=== PATIENT | male | born 1970 | race Caucasian/White ===

== ENCOUNTER 2020-05-08 12:35 | Inpatient (IN) | payer OTHER ==
--- NOTE | 2020-05-08 12:57 | BHS.RME ---
Substance Use & Tx History - Substance Use History Alcohol Substance amount: 2 six packs and 1/2 pint vodka Frequency of use: Daily Substance route: Oral Date of Last Use: 05/07/20 (started age 17) Cocaine- Powder Substance amount: $20 Frequency of use: Daily Substance route: Inhalation (ex: sniffing or snorting) Date of Last Use: 05/07/20 (started age 19) Marijuana/Hashish Substance amount: $5-10 Frequency of use: Daily Substance route: Smoking Date of Last Use: 05/07/20 (started age 17) Nicotine Substance amount: 1 pack Frequency of use: Daily Substance route: Smoking Date of Last Use: 05/08/20 (started age 17) CIWA Nausea/Vomitin-Mild Nausea/No Vomiting Muscle Tremors: 3 Agitation: 3 Paroxysmal Sweats: 3 Orientation: 1-Uncertain about Date Tacttile Disturbances: 0-None Auditory Disturbances: 0-None Visual Disturbances: 0-None Headache: 0-None Present
--- NOTE | 2020-05-08 14:57 | HP ---
CIWA Score Nausea/Vomitin-Mild Nausea/No Vomiting (CIWA 13*) Muscle Tremors: 3 Agitation: 3 Paroxysmal Sweats: 3 Orientation: 1-Uncertain about Date Tacttile Disturbances: 0-None Auditory Disturbances: 0-None Visual Disturbances: 0-None Headache: 0-None Present - Admission Criteria OASAS Guidelines: Admission for Medically Managed Detox: Requires at least one of the followin. CIWA greater than 12 2. Seizures within the past 24 hours 3. Delirium tremens within the past 24 hours 4. Hallucinations within the past 24 hours 5. Acute intervention needed for co occurring medical disorder 6. Acute intervention needed for co occurring psychiatric disorder 7. Severe withdrawal that cannot be handled at a lower level of care (continued vomiting, continued diarrhea, abnormal vital signs) requiring intravenous medication and/or fluids 8. Admitting History and Physical - Admission Chief Complaint: 50 yo M present for alcohol detox; "I want to stop drinking." History of Present Illness: 50 yo M present for alcohol detox; "I want to stop drinking." Last here 01/18/2020 - 01/23/2020 (completed detox). Last drink was yesterday. PMH - DM (insulin long acting at night 30 u, 1000 mg metformin) - reports not having used it in months PSH - none Psych - none, "slow learner" Soc/Domiciled - homeless - lives with friends + shelters Legal - none CIWA=13 Substance Use & Tx History - Substance Use History Alcohol Substance amount: 2 six packs and 1/2 pint vodka Frequency of use: Daily Substance route: Oral Date of Last Use: 05/07/20 (started age 17) Cocaine- Powder Substance amount: $20 Frequency of use: Daily Substance route: Inhalation (ex: sniffing or snorting) Date of Last Use: 05/07/20 (started age 19) Marijuana/Hashish Substance amount: $5-10 Frequency of use: Daily Substance route: Smoking Date of Last Use: 05/07/20 (started age 17) Nicotine Substance amount: 1 pack Frequency of use: Daily Substance route: Smoking Date of Last Use: 05/08/20 (started age 17) - Past Medical History Psych: Yes: Other (mental retardation) Endocrine: Yes: Diabetes Mellitus - Past Surgical History Past Surgical History: Yes: None - Smoking History Smoking history: Current every day smoker Have you smoked in the past 12 months: Yes Aproximately how many cigarettes per day: 20 - Alcohol/Substance Use Hx Alcohol Use: Yes Number of Drinks Daily: 10 History of Substance Use: reports: Cocaine, Marijuana - Social History ADL: Independent Occupation: unemployed History of Recent Travel: No Admission ROS [facility] - [facility] Allergies/Adverse Reactions: Allergies Allergy/AdvReac Type Severity Reaction Status Date / Time fish derived Allergy Intermediate Itching Verified 01/19/20 11:19 shellfish derived Allergy Intermediate Itching Verified 01/19/20 11:19 No Known Drug Allergies Allergy Verified 01/18/20 11:58 seafood Allergy Intermediate Itching Uncoded 01/18/20 10:48 NKDA Allergy Unknown Uncoded 01/18/20 11:58 Exam Limitations: No Limitations - Ebola screening Have you traveled outside of the country in the last 21 days: No Have you been sick,other than usual withdrawal symptoms: No Do you have a fever: No - Review of Systems Constitutional: Other (trouble sleeping) EENT: reports: Blurred Vision (nearsighted with glasses) Respiratory: reports: No Symptoms reported Cardiac: reports: No Symptoms Reported GI: reports: Constipated, Nausea : reports: No Symptoms Reported Musculoskeletal: reports: No Symptoms Reported Integumentary: reports: No Symptoms Reported Neuro: reports: No Symptoms reported Endocrine: reports: Increased Urine Hematology: reports: No Symptoms Reported Psychiatric: reports: Anxious Patient History - Patient Medical History Hx Anemia: No Hx Asthma: No Hx Chronic Obstructive Pulmonary Disease (COPD): No Hx Cancer: No Hx Cardiac Disorders: No Hx Congestive Heart Failure: No Hx Hypertension: No Hx Hypercholesterolemia: No Hx Pacemaker: No HX Cerebrovascular Accident: No Hx Seizures: No Hx Dementia: No Hx Diabetes: Yes Hx Gastrointestinal Disorders: No Hx Liver Disease: No Hx Genitourinary Disorders: No Hx Sexually Transmitted Disorders: No Hx Renal Disease (ESRD): No Hx Thyroid Disease: No Hx Human Immunodeficiency Virus (HIV): No Hx Hepatitis C: No Hx Depression: No Hx Suicide Attempt: No Hx Bipolar Disorder: No Hx Schizophrenia: No - Patient Surgical History Past Surgical History: No Hx Neurologic Surgery: No Hx Cataract Extraction: No Hx Cardiac Surgery: No Hx Lung Surgery: No Hx Breast Surgery: No Hx Breast Biopsy: No Hx Abdominal Surgery: No Hx Appendectomy: No Hx Cholecystectomy: No Hx Genitourinary Surgery: No Hx Section: No Hx Orthopedic Surgery: No Anesthesia Reaction: No - PPD History Date: 01/20/20 - Smoking Cessation Smoking history: Current every day smoker Have you smoked in the past 12 months: Yes Aproximately how many cigarettes per day: 20 Cigars Per Day: 0 Hx Chewing Tobacco Use: No Initiated information on smoking cessation: Yes 'Breaking Loose' booklet given: 05/08/20 Admission Physical Exam [facility] - Vital Signs Vital Signs: BP 132/74 HR 70 RR 16 T 97.7 O2 sat 100% - Physical General Appearance: Yes: Nourished, Appropriately Dressed HEENTM: Yes: EOMI, Hearing grossly Normal, Normocephalic, Normal Voice Respiratory: Yes: Lungs Clear, Normal Breath Sounds, No Respiratory Distress, No Accessory Muscle Use Neck: Yes: Supple, Trachea in good position Breast: Yes: Breast Exam Deferred Cardiology: Yes: Regular Rhythm, Regular Rate Genitourinary: Yes: Other (deferred) Back: Yes: Normal Inspection Musculoskeletal: Yes: Gait Steady Extremities: Yes: Normal Inspection, Non-Tender Neurological: Yes: Fully Oriented, Alert, Normal Mood/Affect Integumentary: Yes: Normal Color, Dry, Warm Cleared for Admission S - Detox or Rehab [facility] Level of Care: Medically Managed Breathalyzer - Breathalyzer Breathalyzer: 0 Urine Drug Screen - Test Device Lot number: [id number] Expiration date: 11/23/21 - Control Is test valid?: Yes - Results Drug screen NEGATIVE: Yes Urine drug screen results: THC-Marijuana, TIM-Cocaine Inpatient Rehab Admission - Rehab Decision to Admit Inpatient rehab admission?: No
[2020-05-08] MEDS ORDERED: MAGNESIUM CITRATE 300 ML BOTTLE PO PRN (15:13)
[2020-05-08] MEDS ORDERED: MENTHOL/PHENOL 1 EACH UD MM PRN (15:13)
[2020-05-08] MEDS ORDERED: chlordiazePOXIDE HCL 25 MG CAPSULE PO PRN (15:13)
[2020-05-08] MEDS ORDERED: IBUPROFEN 400 MG TABLET (FP) PO PRN (15:13)
[2020-05-08] MEDS ORDERED: ONDANSETRON *ODT* 4 MG TABLET SL PRN (15:13)
[2020-05-08] MEDS ORDERED: BISMUTH SUBSALICYLATE 262 MG/15 ML BTL PO PRN (15:13)
[2020-05-08] MEDS ORDERED: MAG HYDROX/AL HYDROX/SIMETH 30 ML UNIT-DOSE CUP PO PRN (15:13)
[2020-05-08] MEDS ORDERED: METHOCARBAMOL 500 MG TABLET PO PRN (15:13)
[2020-05-08] MEDS ORDERED: ACETAMINOPHEN 325 MG TABLET (FP) PO PRN ×2 (15:13)
[2020-05-08] MEDS ORDERED: NICOTINE POLACRILEX 2 MG GUM BUC PRN (15:13)
[2020-05-08] MEDS ORDERED: MAGNESIUM HYDROX 2400MG/30ML ORAL SUSPENSION 30 ML CUP PO PRN (15:13)
[2020-05-08] MEDS ORDERED: Insulin (LOG) Aspart 100 UNITS/ML VIAL SQ ONE (15:37)
[2020-05-08] MEDS ORDERED: INSULIN (NOVOLOG) ASPART 100 UNITS/ML 10ML VIAL ONE (16:29)
[2020-05-08 16:42] VITALS: BMI 20.3
[2020-05-08] MEDS: hydrOXYzine PAMOATE 25 MG CAPSULE (FP) PO SCH ×2 (17:43→22:20)
[2020-05-08] MEDS: NICOTINE 21 MG/24 HOURS TOPICAL PATCH TD SCH (17:43)
[2020-05-08] MEDS: metFORMIN HCL 500 MG TABLET (FP) PO SCH (17:43)
[2020-05-08] MEDS: chlordiazePOXIDE HCL 25 MG CAPSULE PO SCH ×2 (17:44→22:20)
[2020-05-08] MEDS: INSULIN SLIDING SCALE (NOVOLOG) 1 VIAL SQ SCH ×2 (17:46→21:33)
[2020-05-08 20:18] LABS: HEMATOCRIT 44.6 % (35.4-49); HEMOGLOBIN 14.5 GM/dL (11.7-16.9); MCH 29.4 pg (25.7-33.7); MCHC 32.6 g/dl (32.0-35.9); MEAN CELL VOLUME 90.3 fl (80-96); MEAN PLT VOLUME 10.6 fl (7.5-11.1); PLATELET COUNT 175 K/MM3 (134-434); RBC 4.94 M/mm3 (4.00-5.60); RDW 13.4 % (11.9-15.9); WHITE BLOOD COUNT 4.5 K/mm3 (4.0-10.0)
[2020-05-08 20:24] LABS: BLOOD UREA NITROGEN 5.8 mg/dL (7-18); CREATININE 1.1 mg/dL (0.55-1.3)
[2020-05-08 20:25] LABS: ALBUMIN 3.6 g/dl (3.4-5.0); BILIRUBIN,TOTAL 1.2 mg/dL (0.2-1); CALCIUM 8.7 mg/dL (8.5-10.1); POTASSIUM 4.2 mmol/L (3.5-5.1); TOT PROT 6.9 g/dl (6.4-8.2)
[2020-05-08] MEDS: THIAMINE HCL 100 MG TABLET (FP) PO SCH (22:20)
[2020-05-08] MEDS: MELATONIN 5 MG TABLETS PO SCH (22:20)
[2020-05-09] MEDS: chlordiazePOXIDE HCL 25 MG CAPSULE PO SCH ×4 (06:09→22:26)
[2020-05-09] MEDS: hydrOXYzine PAMOATE 25 MG CAPSULE (FP) PO SCH ×5 (06:09→22:26)
[2020-05-09] MEDS: metFORMIN HCL 500 MG TABLET (FP) PO SCH ×2 (06:16→16:36)
[2020-05-09] MEDS: INSULIN SLIDING SCALE (NOVOLOG) 1 VIAL SQ SCH ×4 (06:16→22:25)
[2020-05-09] MEDS ORDERED: INSULIN SLIDING SCALE (NOVOLOG) 1 VIAL SQ ONE (06:21)
--- NOTE | 2020-05-09 08:27 | PN ---
Teaching Attending Note Name of Resident: Prabhu Jasmine ATTENDING PHYSICIAN STATEMENT I saw and evaluated the patient. I reviewed the resident's note and discussed the case with the resident. I agree with the resident's findings and plan as documented. SUBJECTIVE: OBJECTIVE: ASSESSMENT AND PLAN: 1. Alcohol withdrawal, uncomplicated Plan 1. Admit to detox, Librium
--- NOTE | 2020-05-09 09:36 | PN ---
[facility] CIWA - CIWA Score Nausea/Vomitin-Mild Nausea/No Vomiting Muscle Tremors: 2 Anxiety: 2 Agitation: 2 Paroxysmal Sweats: No Perspiration Orientation: 0-Oriented Tacttile Disturbances: 1-Very Mild Itch/Numbness Auditory Disturbances: 0-None Visual Disturbances: 0-None Headache: 2-Mild CIWA-Ar Total Score: 10 S Progress Note (SOAP) Subjective: alert,irritable,anxious,interrupted sleep aching pain,nausea Objective: 05/09/20 14:54 Vital Signs Temperature 97.3 F L 05/09/20 12:44 Pulse Rate 68 05/09/20 12:44 Respiratory Rate 18 05/09/20 12:44 Blood Pressure 110/65 05/09/20 12:44 O2 Sat by Pulse Oximetry (%) 97 05/09/20 12:44 05/09/20 14:54 Laboratory Last Values WBC 4.5 K/mm3 (4.0-10.0) 05/08/20 15:15 RBC 4.94 M/mm3 (4.00-5.60) 05/08/20 15:15 Hgb 14.5 GM/dL (11.7-16.9) 05/08/20 15:15 Hct 44.6 % (35.4-49) 05/08/20 15:15 MCV 90.3 fl (80-96) 05/08/20 15:15 MCH 29.4 pg (25.7-33.7) 05/08/20 15:15 MCHC 32.6 g/dl (32.0-35.9) 05/08/20 15:15 RDW 13.4 % (11.9-15.9) 05/08/20 15:15 Plt Count 175 K/MM3 (134-434) D 05/08/20 15:15 MPV 10.6 fl (7.5-11.1) D 05/08/20 15:15 Sodium 134 mmol/L (136-145) L 05/08/20 15:15 Potassium 4.2 mmol/L (3.5-5.1) 05/08/20 15:15 Chloride 99 mmol/L (98-107) 05/08/20 15:15 Carbon Dioxide 30 mmol/L (21-32) 05/08/20 15:15 Anion Gap 6 MMOL/L (8-16) L 05/08/20 15:15 BUN 5.8 mg/dL (7-18) L 05/08/20 15:15 Creatinine 1.1 mg/dL (0.55-1.3) 05/08/20 15:15 Est GFR (CKD-EPI)AfAm 89.61 05/08/20 15:15 Est GFR (CKD-EPI)NonAf 77.32 05/08/20 15:15 POC Glucometer 280 UNITS (80-120) 05/09/20 11:48 Random Glucose 553 mg/dL (74-106) H* 05/08/20 15:15 Calcium 8.7 mg/dL (8.5-10.1) 05/08/20 15:15 Total Bilirubin 1.2 mg/dL (0.2-1) H 05/08/20 15:15 AST 16 U/L (15-37) 05/08/20 15:15 ALT 32 U/L (13-61) 05/08/20 15:15 Alkaline Phosphatase 111 U/L (45-117) 05/08/20 15:15 Total Protein 6.9 g/dl (6.4-8.2) 05/08/20 15:15 Albumin 3.6 g/dl (3.4-5.0) 05/08/20 15:15 Syphilis Serology Non-reactive (NONREACTIVE) 05/08/20 15:13 Assessment: 05/09/20 14:55 withdrawal symptom Plan: continue detox librium regimen,bgm monitoring with insulin coverage,close monitoring
[2020-05-09] MEDS: PRENATAL VITAMINS W/ FOLIC ACID TABLET (FP) PO SCH (10:45)
[2020-05-09] MEDS: NICOTINE 21 MG/24 HOURS TOPICAL PATCH TD SCH (10:45)
[2020-05-09] MEDS: LISINOPRIL 5 MG TABLET (FP) PO SCH (10:45)
[2020-05-09] MEDS: MELATONIN 5 MG TABLETS PO SCH (22:25)
[2020-05-09] MEDS: THIAMINE HCL 100 MG TABLET (FP) PO SCH (22:26)
[2020-05-10] MEDS: chlordiazePOXIDE HCL 25 MG CAPSULE PO SCH ×4 (05:18→22:19)
[2020-05-10] MEDS: hydrOXYzine PAMOATE 25 MG CAPSULE (FP) PO SCH ×5 (05:18→22:19)
[2020-05-10] MEDS: metFORMIN HCL 500 MG TABLET (FP) PO SCH ×2 (06:18→18:15)
[2020-05-10] MEDS: INSULIN SLIDING SCALE (NOVOLOG) 1 VIAL SQ SCH ×4 (06:19→22:27)
--- NOTE | 2020-05-10 08:42 | PN ---
S CIWA - CIWA Score Nausea/Vomitin Muscle Tremors: 2 Anxiety: 2 Agitation: 2 Paroxysmal Sweats: No Perspiration Orientation: 0-Oriented Tacttile Disturbances: 1-Very Mild Itch/Numbness Auditory Disturbances: 0-None Visual Disturbances: 0-None Headache: 2-Mild CIWA-Ar Total Score: 11 S Progress Note (SOAP) Subjective: alert,irritable,anxious,interrupted sleep,tremor,aching pain Objective: 05/10/20 10:43 Vital Signs Temperature 97.1 F L 05/10/20 09:03 Pulse Rate 92 H 05/10/20 09:03 Respiratory Rate 18 05/10/20 09:03 Blood Pressure 129/74 05/10/20 09:03 O2 Sat by Pulse Oximetry (%) 99 05/10/20 06:18 05/10/20 10:43 Laboratory Last Values WBC 4.5 K/mm3 (4.0-10.0) 05/08/20 15:15 RBC 4.94 M/mm3 (4.00-5.60) 05/08/20 15:15 Hgb 14.5 GM/dL (11.7-16.9) 05/08/20 15:15 Hct 44.6 % (35.4-49) 05/08/20 15:15 MCV 90.3 fl (80-96) 05/08/20 15:15 MCH 29.4 pg (25.7-33.7) 05/08/20 15:15 MCHC 32.6 g/dl (32.0-35.9) 05/08/20 15:15 RDW 13.4 % (11.9-15.9) 05/08/20 15:15 Plt Count 175 K/MM3 (134-434) D 05/08/20 15:15 MPV 10.6 fl (7.5-11.1) D 05/08/20 15:15 Sodium 134 mmol/L (136-145) L 05/08/20 15:15 Potassium 4.2 mmol/L (3.5-5.1) 05/08/20 15:15 Chloride 99 mmol/L (98-107) 05/08/20 15:15 Carbon Dioxide 30 mmol/L (21-32) 05/08/20 15:15 Anion Gap 6 MMOL/L (8-16) L 05/08/20 15:15 BUN 5.8 mg/dL (7-18) L 05/08/20 15:15 Creatinine 1.1 mg/dL (0.55-1.3) 05/08/20 15:15 Est GFR (CKD-EPI)AfAm 89.61 05/08/20 15:15 Est GFR (CKD-EPI)NonAf 77.32 05/08/20 15:15 POC Glucometer 163 UNITS (80-120) 05/10/20 05:18 Random Glucose 553 mg/dL (74-106) H* 05/08/20 15:15 Calcium 8.7 mg/dL (8.5-10.1) 05/08/20 15:15 Total Bilirubin 1.2 mg/dL (0.2-1) H 05/08/20 15:15 AST 16 U/L (15-37) 05/08/20 15:15 ALT 32 U/L (13-61) 05/08/20 15:15 Alkaline Phosphatase 111 U/L (45-117) 05/08/20 15:15 Total Protein 6.9 g/dl (6.4-8.2) 05/08/20 15:15 Albumin 3.6 g/dl (3.4-5.0) 05/08/20 15:15 Syphilis Serology Non-reactive (NONREACTIVE) 05/08/20 15:13 COVID-19 (SHERI) Not detected (Not Detected) 05/08/20 16:30 Assessment: 05/10/20 10:43 withdrawal symptom Plan: continue detox librium regimen,bgm monitoring with insulin coverage sliding scale
[2020-05-10] MEDS: NICOTINE 21 MG/24 HOURS TOPICAL PATCH TD SCH (10:12)
[2020-05-10] MEDS: PRENATAL VITAMINS W/ FOLIC ACID TABLET (FP) PO SCH (10:12)
[2020-05-10] MEDS: LISINOPRIL 5 MG TABLET (FP) PO SCH (10:12)
[2020-05-10] MEDS: MELATONIN 5 MG TABLETS PO SCH (22:19)
[2020-05-10] MEDS: THIAMINE HCL 100 MG TABLET (FP) PO SCH (22:19)
[2020-05-11] MEDS ORDERED: chlordiazePOXIDE HCL 10 MG CAPSULE PO PRN
[2020-05-11] MEDS: chlordiazePOXIDE HCL 10 MG CAPSULE PO SCH ×4 (05:20→22:10)
[2020-05-11] MEDS: hydrOXYzine PAMOATE 25 MG CAPSULE (FP) PO SCH ×5 (05:21→22:10)
[2020-05-11] MEDS: metFORMIN HCL 500 MG TABLET (FP) PO SCH ×2 (07:06→17:25)
[2020-05-11] MEDS ORDERED: INSULIN SLIDING SCALE (NOVOLOG) 1 VIAL SQ ONE (07:06)
[2020-05-11] MEDS: INSULIN SLIDING SCALE (NOVOLOG) 1 VIAL SQ SCH ×4 (07:06→22:10)
--- NOTE | 2020-05-11 10:25 | PN ---
S CIWA - CIWA Score Nausea/Vomitin Muscle Tremors: 2 Anxiety: 2 Agitation: 2 Paroxysmal Sweats: No Perspiration Orientation: 0-Oriented Tacttile Disturbances: 1-Very Mild Itch/Numbness Auditory Disturbances: 0-None Visual Disturbances: 0-None Headache: 1-Very Mild CIWA-Ar Total Score: 10 S Progress Note (SOAP) Subjective: alert,irritable,anxious,interrupted sleep,tremor,aching pain Objective: 05/11/20 14:22 Vital Signs Temperature 97.5 F L 05/11/20 12:51 Pulse Rate 74 05/11/20 12:51 Respiratory Rate 18 05/11/20 12:51 Blood Pressure 119/68 05/11/20 12:51 O2 Sat by Pulse Oximetry (%) 99 05/11/20 12:51 Laboratory Last Values WBC 4.5 K/mm3 (4.0-10.0) 05/08/20 15:15 RBC 4.94 M/mm3 (4.00-5.60) 05/08/20 15:15 Hgb 14.5 GM/dL (11.7-16.9) 05/08/20 15:15 Hct 44.6 % (35.4-49) 05/08/20 15:15 MCV 90.3 fl (80-96) 05/08/20 15:15 MCH 29.4 pg (25.7-33.7) 05/08/20 15:15 MCHC 32.6 g/dl (32.0-35.9) 05/08/20 15:15 RDW 13.4 % (11.9-15.9) 05/08/20 15:15 Plt Count 175 K/MM3 (134-434) D 05/08/20 15:15 MPV 10.6 fl (7.5-11.1) D 05/08/20 15:15 Sodium 134 mmol/L (136-145) L 05/08/20 15:15 Potassium 4.2 mmol/L (3.5-5.1) 05/08/20 15:15 Chloride 99 mmol/L (98-107) 05/08/20 15:15 Carbon Dioxide 30 mmol/L (21-32) 05/08/20 15:15 Anion Gap 6 MMOL/L (8-16) L 05/08/20 15:15 BUN 5.8 mg/dL (7-18) L 05/08/20 15:15 Creatinine 1.1 mg/dL (0.55-1.3) 05/08/20 15:15 Est GFR (CKD-EPI)AfAm 89.61 05/08/20 15:15 Est GFR (CKD-EPI)NonAf 77.32 05/08/20 15:15 POC Glucometer 278 UNITS (80-120) 05/11/20 11:53 Random Glucose 553 mg/dL (74-106) H* 05/08/20 15:15 Calcium 8.7 mg/dL (8.5-10.1) 05/08/20 15:15 Total Bilirubin 1.2 mg/dL (0.2-1) H 05/08/20 15:15 AST 16 U/L (15-37) 05/08/20 15:15 ALT 32 U/L (13-61) 05/08/20 15:15 Alkaline Phosphatase 111 U/L (45-117) 05/08/20 15:15 Total Protein 6.9 g/dl (6.4-8.2) 05/08/20 15:15 Albumin 3.6 g/dl (3.4-5.0) 05/08/20 15:15 Syphilis Serology Non-reactive (NONREACTIVE) 05/08/20 15:13 COVID-19 (SHERI) Not detected (Not Detected) 05/08/20 16:30 Assessment: 05/11/20 14:23 withdrawal symptom Plan: continue detox librium regimen,bgm monitoring
[2020-05-11] MEDS: LISINOPRIL 5 MG TABLET (FP) PO SCH (10:47)
[2020-05-11] MEDS: NICOTINE 21 MG/24 HOURS TOPICAL PATCH TD SCH (10:48)
[2020-05-11] MEDS: PRENATAL VITAMINS W/ FOLIC ACID TABLET (FP) PO SCH (10:48)
[2020-05-11] MEDS: MELATONIN 5 MG TABLETS PO SCH (22:10)
[2020-05-11] MEDS: THIAMINE HCL 100 MG TABLET (FP) PO SCH (22:10)
[2020-05-12] MEDS ORDERED: chlordiazePOXIDE HCL 10 MG CAPSULE PO SCH (05:00)
[2020-05-12] MEDS: hydrOXYzine PAMOATE 25 MG CAPSULE (FP) PO SCH ×3 (05:37→14:33)
[2020-05-12] MEDS: metFORMIN HCL 500 MG TABLET (FP) PO SCH (07:32)
[2020-05-12] MEDS: INSULIN SLIDING SCALE (NOVOLOG) 1 VIAL SQ SCH ×2 (07:32→11:39)
--- NOTE | 2020-05-12 08:37 | PN ---
[facility] CIWA - CIWA Score Nausea/Vomitin-No Nausea/No Vomiting Muscle Tremors: None Anxiety: 1-Mildly Anxious Agitation: 0-Normal Activity Paroxysmal Sweats: No Perspiration Orientation: 0-Oriented Tacttile Disturbances: 0-None Auditory Disturbances: 0-None Visual Disturbances: 0-None Headache: 0-None Present CIWA-Ar Total Score: 1 S Progress Note (SOAP) Subjective: alert,no complaint Objective: 05/12/20 13:22 Vital Signs Temperature 97.7 F 05/12/20 12:40 Pulse Rate 70 05/12/20 12:40 Respiratory Rate 18 05/12/20 12:40 Blood Pressure 111/75 05/12/20 12:40 O2 Sat by Pulse Oximetry (%) 97 05/12/20 12:40 Assessment: 05/12/20 13:22 no withdrawal symptom Plan: stable for discharge today to [facility]
--- NOTE | 2020-05-12 10:02 | DS ---
[facility] Detox Discharge Summary Admission Date: 05/08/20 Discharge Date: 05/12/20 - History Present History: Alcohol Dependence, Cannabis Dependence, Cocaine Dependence Additional Comments: alert,oriented x3 ambulation on the unit lung clear on auscultation bilaterally abdomen soft,no distension,no pain no swelling of legs stable for discharge today no withdrawal symptom total time of discharge 35 minutes follow up with after care program [facility] as arrangement Pertinent Past History: type 2 dm nicotine dependence - Physical Exam Results Vital Signs: Vital Signs Temperature 97.5 F L 05/12/20 08:32 Pulse Rate 86 05/12/20 08:32 Respiratory Rate 18 05/12/20 08:32 Blood Pressure 123/74 05/12/20 08:32 O2 Sat by Pulse Oximetry (%) 97 05/12/20 06:23 Pertinent Admission Physical Exam Findings: type 2 dm - Treatment Hospital Course: Detox Protocol Followed, Detoxed Safely, Responded well, D ischarged Condition Good, Rehab Referral Accepted Patient has Accepted a Rehab Referral to: [facility] - Medication Discharge Medications: Ambulatory Orders Insulin Glargine,Hum.rec.anlog [Basaglar Kwikpen U-100] 30 unit SQ DAILY 01/18/20 Lisinopril 2.5 mg PO DAILY 14 Days #7 tablet 01/22/20 Metformin HCl [Glucophage] 1,000 mg PO BID 14 Days #28 tablet 01/22/20 - Diagnosis (1) Alcohol dependence with withdrawal Current Visit: No Status: Acute Qualifiers: Complication of substance-induced condition: uncomplicated Qualified Code(s): F10.230 - Alcohol dependence with withdrawal, uncomplicated (2) Cannabis use disorder, mild, abuse Current Visit: No Status: Acute (3) Cocaine use disorder Current Visit: No Status: Acute (4) Diabetes 1.5, managed as type 2 Current Visit: No Status: Acute (5) Diabetes mellitus, type II, insulin dependent Current Visit: No Status: Chronic - AMA Did Patient Leave Against Medical Advice: No
[2020-05-12] MEDS: LISINOPRIL 5 MG TABLET (FP) PO SCH (11:36)
[2020-05-12] MEDS: PRENATAL VITAMINS W/ FOLIC ACID TABLET (FP) PO SCH (11:36)
[2020-05-12] MEDS: NICOTINE 21 MG/24 HOURS TOPICAL PATCH TD SCH (11:36)
[2020-05-12 13:16] VITALS: BP 111/75; PULSE 70; TEMP 97.7
[2020-05-13] MEDS ORDERED: chlordiazePOXIDE HCL 10 MG CAPSULE PO ONE (05:00)
== END 2020-05-12 14:37 | disposition other institution (70) | DRG 774 ==
LOC: YASAS 12:35 → Y3N 15:26
PROVIDERS: ADMIT Allergy & Immunology; ATTEND Allergy & Immunology
PROC: HZ2ZZZZ Detoxification Services for Substance Abuse Treatment (ICD-10-PCS; principal; 2020-05-08)
DX: F10.230 Alcohol dependence with withdrawal, uncomplicated (principal); F14.20 Cocaine dependence, uncomplicated; F12.20 Cannabis dependence, uncomplicated; F17.210 Nicotine dependence, cigarettes, uncomplicated; E11.9 Type 2 diabetes mellitus without complications; Z79.4 Long term (current) use of insulin; F79 Unspecified intellectual disabilities; Z91.013 Allergy to seafood
CPT/HCPCS: 36415; 80053; 82962; 85027; 86780; U0003

== ENCOUNTER 2020-05-12 14:58 | Inpatient (IN) | payer OTHER ==
[2020-05-12] MEDS ORDERED: IBUPROFEN 400 MG TABLET (FP) PO PRN (15:43)
[2020-05-12] MEDS ORDERED: MAG HYDROX/AL HYDROX/SIMETH 30 ML UNIT-DOSE CUP PO PRN (15:43)
[2020-05-12] MEDS ORDERED: P-EPHED 60MG/TRIPROLIDI 2.5MG TABLET PO PRN (15:43)
[2020-05-12] MEDS ORDERED: MAGNESIUM HYDROX 2400MG/30ML ORAL SUSPENSION 30 ML CUP PO PRN (15:43)
[2020-05-12] MEDS ORDERED: LOPERAMIDE HCL 2 MG CAPSULE PO PRN (15:43)
[2020-05-12] MEDS ORDERED: ACETAMINOPHEN 325 MG TABLET (FP) PO PRN (15:43)
[2020-05-12] MEDS ORDERED: MENTHOL/PHENOL 1 EACH UD MM PRN (15:43)
[2020-05-12] MEDS ORDERED: guaiFENesin 200 MG/10 ML 10 ML UNIT-DOSE CUPS PO PRN (15:43)
[2020-05-12] MEDS ORDERED: NICOTINE POLACRILEX 2 MG GUM BUC PRN (15:43)
[2020-05-12] MEDS ORDERED: MAGNESIUM CITRATE 300 ML BOTTLE PO PRN (15:43)
--- NOTE | 2020-05-12 15:43 | HP ---
[facility] Rehab Assess/Revision - Admission History Admitted to Rehab from: [facility] Date of Admission to Rehab: 05/12/2020 - Vital signs Vital Signs: Vital Signs Period Temp Pulse Resp BP Sys/Yoder Pulse Ox Last 24 Hr 97 F 78 18 121/74 - Findings Detox History & Physical reviewed: Yes Concur with findings: Yes Inpatient Rehab Admission - Rehab Decision to Admit Inpatient rehab admission?: Yes - Initial Determination Are CD services needed?: Yes Free of communicable disease: Yes Not in need of hospitalization: Yes - Rehab Admission Criteria Previous failed treatment: Yes Poor recovery environment: Yes Comorbidities: Yes Lacks judgement: No Patient is meeting Inpatient Rehab admission criteria:: Yes
[2020-05-12] MEDS ORDERED: ONDANSETRON *ODT* 4 MG TABLET SL PRN (15:44)
[2020-05-12] MEDS: INSULIN SLIDING SCALE (NOVOLOG) 1 VIAL SQ SCH ×2 (17:26→21:53)
[2020-05-12] MEDS: THIAMINE HCL 100 MG TABLET (FP) PO SCH (21:51)
[2020-05-12] MEDS: hydrOXYzine PAMOATE 25 MG CAPSULE (FP) PO PRN (21:52)
[2020-05-12] MEDS: MELATONIN 5 MG TABLETS PO SCH (22:46)
[2020-05-13] MEDS: INSULIN SLIDING SCALE (NOVOLOG) 1 VIAL SQ SCH ×4 (07:06→21:03)
[2020-05-13] MEDS: metFORMIN HCL 500 MG TABLET (FP) PO SCH ×2 (07:06→17:06)
[2020-05-13] MEDS: hydrOXYzine PAMOATE 25 MG CAPSULE (FP) PO PRN ×2 (10:00→20:59)
[2020-05-13] MEDS ORDERED: PATIENT'S OWN MEDICATION (NON-FORMULARY) (Insulin Glargine,Hum.Rec.Anlog [Basaglar Kwikpen SQ SCH (10:00)
[2020-05-13] MEDS: LISINOPRIL 5 MG TABLET PO SCH (10:00)
[2020-05-13] MEDS: NICOTINE 7 MG/24 HOURS TOPICAL PATCH TD SCH (10:00)
[2020-05-13] MEDS: PRENATAL VITAMINS W/ FOLIC ACID TABLET (FP) PO SCH (10:00)
[2020-05-13] MEDS ORDERED: INSULIN (NOVOLOG) ASPART 100 UNITS/ML 10ML VIAL ONE ×2 (11:55→20:57)
[2020-05-13] MEDS: THIAMINE HCL 100 MG TABLET (FP) PO SCH (21:00)
[2020-05-13] MEDS: MELATONIN 5 MG TABLETS PO SCH (21:04)
[2020-05-14] MEDS: metFORMIN HCL 500 MG TABLET (FP) PO SCH ×2 (07:09→16:52)
[2020-05-14] MEDS: INSULIN SLIDING SCALE (NOVOLOG) 1 VIAL SQ SCH ×4 (07:10→21:56)
[2020-05-14] MEDS ORDERED: INSULIN (NOVOLOG) ASPART 100 UNITS/ML 10ML VIAL ONE ×4 (07:10→21:11)
[2020-05-14] MEDS: PRENATAL VITAMINS W/ FOLIC ACID TABLET (FP) PO SCH (10:06)
[2020-05-14] MEDS: hydrOXYzine PAMOATE 25 MG CAPSULE (FP) PO PRN (10:06)
[2020-05-14] MEDS: NICOTINE 7 MG/24 HOURS TOPICAL PATCH TD SCH (10:07)
[2020-05-14] MEDS: LISINOPRIL 5 MG TABLET PO SCH (10:07)
[2020-05-14] MEDS: MELATONIN 5 MG TABLETS PO SCH (21:55)
[2020-05-14] MEDS: THIAMINE HCL 100 MG TABLET (FP) PO SCH (21:56)
[2020-05-15] MEDS: INSULIN SLIDING SCALE (NOVOLOG) 1 VIAL SQ SCH ×4 (06:29→21:00)
[2020-05-15] MEDS: metFORMIN HCL 500 MG TABLET (FP) PO SCH ×2 (06:29→16:35)
[2020-05-15] MEDS: LISINOPRIL 5 MG TABLET PO SCH (09:46)
[2020-05-15] MEDS: NICOTINE 7 MG/24 HOURS TOPICAL PATCH TD SCH (09:46)
[2020-05-15] MEDS: PRENATAL VITAMINS W/ FOLIC ACID TABLET (FP) PO SCH (09:46)
[2020-05-15] MEDS: hydrOXYzine PAMOATE 25 MG CAPSULE (FP) PO PRN ×2 (09:47→21:01)
[2020-05-15] MEDS ORDERED: INSULIN (NOVOLOG) ASPART 100 UNITS/ML 10ML VIAL ONE ×2 (12:06→21:43)
[2020-05-15] MEDS: MELATONIN 5 MG TABLETS PO SCH (21:00)
[2020-05-15] MEDS: THIAMINE HCL 100 MG TABLET (FP) PO SCH (21:00)
[2020-05-16] MEDS: metFORMIN HCL 500 MG TABLET (FP) PO SCH ×2 (06:24→16:29)
[2020-05-16] MEDS ORDERED: INSULIN (NOVOLOG) ASPART 100 UNITS/ML 10ML VIAL ONE ×4 (06:26→21:37)
[2020-05-16] MEDS: INSULIN SLIDING SCALE (NOVOLOG) 1 VIAL SQ SCH ×4 (06:27→21:01)
[2020-05-16] MEDS: hydrOXYzine PAMOATE 25 MG CAPSULE (FP) PO PRN (09:56)
[2020-05-16] MEDS: PRENATAL VITAMINS W/ FOLIC ACID TABLET (FP) PO SCH (09:57)
[2020-05-16] MEDS: LISINOPRIL 5 MG TABLET PO SCH (09:58)
[2020-05-16] MEDS: NICOTINE 7 MG/24 HOURS TOPICAL PATCH TD SCH (09:58)
[2020-05-16] MEDS: THIAMINE HCL 100 MG TABLET (FP) PO SCH (21:00)
[2020-05-16] MEDS: MELATONIN 5 MG TABLETS PO SCH (21:01)
[2020-05-17] MEDS: metFORMIN HCL 500 MG TABLET (FP) PO SCH ×2 (06:33→18:01)
[2020-05-17] MEDS: INSULIN SLIDING SCALE (NOVOLOG) 1 VIAL SQ SCH ×4 (06:34→21:39)
[2020-05-17] MEDS: PRENATAL VITAMINS W/ FOLIC ACID TABLET (FP) PO SCH (10:06)
[2020-05-17] MEDS: hydrOXYzine PAMOATE 25 MG CAPSULE (FP) PO PRN (10:07)
[2020-05-17] MEDS: LISINOPRIL 5 MG TABLET PO SCH (10:07)
[2020-05-17] MEDS: NICOTINE 7 MG/24 HOURS TOPICAL PATCH TD SCH (10:07)
--- NOTE | 2020-05-17 11:14 | CONSULT ---
[facility] Psychiatric Consult - Data Date of interview: 05/17/20 Admission source: 3N Identifying data: Mr De Souza is a 50 years old single male, unemployed receiving food stamps, living with his brother refered from detox on 05/12/20 for inpatient rehabilitation treatment for alcohol, cocaine and cannabis Substance Abuse History: Reports history of alcohol, cocaine and marijuana use. Refer to addiction counselor's summary for further information Medical History: Significant for type 2 diabetes mellitus. Smokes cigarettes 1 ppd Psychiatric History: Patient is known for two previous admissions to this facility. He reports that his first contact with mental health occured while in elementary school because he was in special education due to learning disability. He said that he started feeling depressed after his brother in penitentiary in 1992. Reports that he was self medicating with alcohol and illicit substances and did not seek mental health treatment till 7 years later. He said that he was diagnosed with MDD by a psychiatrist at [facility] mental [facility] clinic and he was started on Wellbutrin and Trazadone. Reports that after 3 months, he stopped seeing that psychiatrist and has been off medication since. Denies previous psychiatric hospitalization or suicidal attempt. At present, denies experiencing depressive symptoms, S/H ideations. However, reports feeling anxious and sleeping poorly. Requests to be ordered Trazadone to which he claims responding well in the past Physical/Sexual Abuse/Trauma History: Denies history of abuse as a child or DV relationship as an adult Mental Status Exam - Mental Status Exam Alert and Oriented to: Time, Place, Person Cognitive Function: Fair Patient Appearance: Well Groomed Mood: Anxious Affect: Appropriate Patient Behavior: Cooperative Speech Pattern: Clear Voice Loudness: Normal Thought Process: Intact, Goal Oriented Thought Disorder: Not Present Hallucinations: Denies Suicidal Ideation: Denies Homicidal Ideation: Denies Insight/Judgement: Fair Sleep: Poorly Appetite: Good Muscle strength/Tone: Normal Gait/Station: Normal Psychiatric Findings - Problem List ([place] 1, 2,3) (1) MDD (major depressive disorder), single episode, mild Current Visit: Yes Status: Chronic (2) Substance-induced anxiety disorder Current Visit: Yes Status: Acute (3) Substance-induced sleep disorder Current Visit: Yes Status: Acute (4) Alcohol dependence Current Visit: Yes Status: Acute (5) Cocaine dependence Current Visit: Yes Status: Acute (6) Cannabis dependence Current Visit: Yes Status: Acute (7) Nicotine dependence Current Visit: No Status: Chronic Qualifiers: Nicotine product type: cigarettes Substance use status: in withdrawal Qualified Code(s): F17.213 - Nicotine dependence, cigarettes, with withdrawal (8) Diabetes mellitus, type II, insulin dependent Current Visit: No Status: Chronic - Initial Treatment Plan Initial Treatment Plan: 1) Start Trazadone 100 mg po HS. 2) Continue inpatient rehabilitation
[2020-05-17] MEDS ORDERED: INSULIN (NOVOLOG) ASPART 100 UNITS/ML 10ML VIAL ONE ×2 (12:02→18:01)
[2020-05-17] MEDS: MELATONIN 5 MG TABLETS PO SCH (21:36)
[2020-05-17] MEDS: traZODone HCL 100 MG TABLET (FP) PO SCH (21:37)
[2020-05-17] MEDS: THIAMINE HCL 100 MG TABLET (FP) PO SCH (21:40)
[2020-05-18] MEDS: INSULIN SLIDING SCALE (NOVOLOG) 1 VIAL SQ SCH ×4 (06:50→21:01)
[2020-05-18] MEDS: metFORMIN HCL 500 MG TABLET (FP) PO SCH ×2 (06:51→16:22)
[2020-05-18] MEDS: PRENATAL VITAMINS W/ FOLIC ACID TABLET (FP) PO SCH (09:35)
[2020-05-18] MEDS: hydrOXYzine PAMOATE 25 MG CAPSULE (FP) PO PRN (09:35)
[2020-05-18] MEDS: LISINOPRIL 5 MG TABLET PO SCH (09:35)
[2020-05-18] MEDS: NICOTINE 7 MG/24 HOURS TOPICAL PATCH TD SCH (09:36)
[2020-05-18] MEDS ORDERED: INSULIN (NOVOLOG) ASPART 100 UNITS/ML 10ML VIAL ONE ×3 (11:51→21:00)
[2020-05-18] MEDS: THIAMINE HCL 100 MG TABLET (FP) PO SCH (21:00)
[2020-05-18] MEDS: traZODone HCL 100 MG TABLET (FP) PO SCH (21:00)
[2020-05-18] MEDS: MELATONIN 5 MG TABLETS PO SCH (21:01)
[2020-05-19] MEDS: INSULIN SLIDING SCALE (NOVOLOG) 1 VIAL SQ SCH ×4 (06:03→21:01)
[2020-05-19] MEDS: metFORMIN HCL 500 MG TABLET (FP) PO SCH ×2 (06:04→16:36)
[2020-05-19] MEDS: LISINOPRIL 5 MG TABLET PO SCH (09:49)
[2020-05-19] MEDS: PRENATAL VITAMINS W/ FOLIC ACID TABLET (FP) PO SCH (09:49)
[2020-05-19] MEDS: NICOTINE 7 MG/24 HOURS TOPICAL PATCH TD SCH (09:49)
[2020-05-19] MEDS: hydrOXYzine PAMOATE 25 MG CAPSULE (FP) PO PRN (09:49)
[2020-05-19] MEDS ORDERED: INSULIN (NOVOLOG) ASPART 100 UNITS/ML 10ML VIAL ONE ×3 (11:50→21:33)
[2020-05-19] MEDS: traZODone HCL 100 MG TABLET (FP) PO SCH (20:59)
[2020-05-19] MEDS: THIAMINE HCL 100 MG TABLET (FP) PO SCH (20:59)
[2020-05-19] MEDS: MELATONIN 5 MG TABLETS PO SCH (21:00)
[2020-05-20] MEDS: metFORMIN HCL 500 MG TABLET (FP) PO SCH ×2 (06:30→16:27)
[2020-05-20] MEDS ORDERED: INSULIN (NOVOLOG) ASPART 100 UNITS/ML 10ML VIAL ONE ×4 (06:31→21:22)
[2020-05-20] MEDS: INSULIN SLIDING SCALE (NOVOLOG) 1 VIAL SQ SCH ×4 (06:36→21:11)
[2020-05-20] MEDS: PRENATAL VITAMINS W/ FOLIC ACID TABLET (FP) PO SCH (09:50)
[2020-05-20] MEDS: LISINOPRIL 5 MG TABLET PO SCH (09:50)
[2020-05-20] MEDS: NICOTINE 7 MG/24 HOURS TOPICAL PATCH TD SCH (09:50)
[2020-05-20] MEDS: hydrOXYzine PAMOATE 25 MG CAPSULE (FP) PO PRN (09:51)
[2020-05-20] MEDS: MELATONIN 5 MG TABLETS PO SCH (21:09)
[2020-05-20] MEDS: traZODone HCL 100 MG TABLET (FP) PO SCH (21:09)
[2020-05-20] MEDS: THIAMINE HCL 100 MG TABLET (FP) PO SCH (21:09)
[2020-05-21] MEDS: metFORMIN HCL 500 MG TABLET (FP) PO SCH ×2 (06:34→16:44)
[2020-05-21] MEDS: INSULIN SLIDING SCALE (NOVOLOG) 1 VIAL SQ SCH ×4 (06:35→21:00)
[2020-05-21] MEDS ORDERED: INSULIN (NOVOLOG) ASPART 100 UNITS/ML 10ML VIAL ONE ×2 (06:52→11:35)
[2020-05-21] MEDS: NICOTINE 7 MG/24 HOURS TOPICAL PATCH TD SCH (10:04)
[2020-05-21] MEDS: PRENATAL VITAMINS W/ FOLIC ACID TABLET (FP) PO SCH (10:04)
[2020-05-21] MEDS: LISINOPRIL 5 MG TABLET PO SCH (10:04)
[2020-05-21] MEDS: hydrOXYzine PAMOATE 25 MG CAPSULE (FP) PO PRN (10:05)
[2020-05-21] MEDS: THIAMINE HCL 100 MG TABLET (FP) PO SCH (21:00)
[2020-05-21] MEDS: traZODone HCL 100 MG TABLET (FP) PO SCH (21:00)
[2020-05-21] MEDS: MELATONIN 5 MG TABLETS PO SCH (21:01)
[2020-05-22] MEDS: INSULIN SLIDING SCALE (NOVOLOG) 1 VIAL SQ SCH ×4 (06:36→21:14)
[2020-05-22] MEDS: metFORMIN HCL 500 MG TABLET (FP) PO SCH ×2 (06:36→17:02)
[2020-05-22] MEDS ORDERED: INSULIN (NOVOLOG) ASPART 100 UNITS/ML 10ML VIAL ONE ×3 (06:43→17:13)
[2020-05-22] MEDS: LISINOPRIL 5 MG TABLET PO SCH (10:09)
[2020-05-22] MEDS: NICOTINE 7 MG/24 HOURS TOPICAL PATCH TD SCH (10:09)
[2020-05-22] MEDS: hydrOXYzine PAMOATE 25 MG CAPSULE (FP) PO PRN (10:09)
[2020-05-22] MEDS: PRENATAL VITAMINS W/ FOLIC ACID TABLET (FP) PO SCH (10:09)
[2020-05-22] MEDS: THIAMINE HCL 100 MG TABLET (FP) PO SCH (21:11)
[2020-05-22] MEDS: traZODone HCL 100 MG TABLET (FP) PO SCH (21:11)
[2020-05-22] MEDS: MELATONIN 5 MG TABLETS PO SCH (21:12)
[2020-05-23 07:15] VITALS: BP 112/70; PULSE 62; TEMP 97.5
[2020-05-23] MEDS: metFORMIN HCL 500 MG TABLET (FP) PO SCH (07:34)
[2020-05-23] MEDS: INSULIN SLIDING SCALE (NOVOLOG) 1 VIAL SQ SCH (07:34)
--- NOTE | 2020-05-23 09:44 | DS ---
[facility] Rehab Discharge Summary - [facility] Rehab Discharge Summary Admission Date: 05/12/20 Discharge Date: 05/23/20 - History Present History: Alcohol dependence, Cannabis dependence, Cocaine dependence Pertinent Past History: 50 yo M present for alcohol detox; "I want to stop drinking." Last here 01/18/2020 - 01/23/2020. PMH - DM (insulin long acting at night 30 u, 1000 mg metformin) - reports not having used it in months PSH - none Psych - none, "slow learner" Soc/Domiciled - homeless - lives with friends + shelters Legal - none - Discharge Physical Exam Vital Signs: Vital Signs Temperature 97.5 F L 05/23/20 06:26 Pulse Rate 62 05/23/20 06:26 Respiratory Rate 18 05/23/20 06:26 Blood Pressure 112/70 05/23/20 06:26 O2 Sat by Pulse Oximetry (%) 98 05/23/20 06:26 Pertinent Admission Physical Exam Findings: Physical General Appearance: No apparent distress HEENTM: EOMI, Normocephalic, Respiratory: No Respiratory Distress, No Accessory Muscle Use Neck: Supple, Musculoskeletal: Full ROM, Full weight bearing, Gait Steady Neurological: No cognitive deficits noted, CN 2-12 intact - Treatment Discharge Condition: Discharge condition good (Medically stable for discharge.), Outpatient referral accepted (Patient will go to [facility] OPT program.) Hospital Course: Patient attended groups, had 1:1 with his counselor, was seen by the psychiatric service. He was adherent to his medication regimen and treatment plan. He had no acute or urgent medical problems while in rehab. - Medication Discharge Medications: Ambulatory Orders Insulin Glargine,Hum.rec.anlog [Basaglar Kwikpen U-100] 30 unit SQ DAILY 01/18/20 Metformin HCl [Glucophage] 1,000 mg PO BID 14 Days #28 tablet 01/22/20 Lisinopril [Prinivil] 2.5 mg PO DAILY tablet 05/12/20 - Medication-Assisted Treatment (MAT) Medication-Assisted Treatment (MAT): No - Discharge Instructions Diet, activity, other medical instructions: Diet: as tolerated Activity: as tolerated Other medical instructions: Please follow up with your aftercare referral. - Diagnosis (1) Alcohol dependence Current Visit: Yes Status: Chronic (2) Cannabis dependence Current Visit: Yes Status: Chronic (3) Cocaine dependence Current Visit: Yes Status: Chronic - Follow-up Referral Minutes to complete discharge: 20 - AMA Did Patient Leave Against Medical Advice: No
[2020-05-23] MEDS: LISINOPRIL 5 MG TABLET PO SCH (09:48)
[2020-05-23] MEDS: PRENATAL VITAMINS W/ FOLIC ACID TABLET (FP) PO SCH (09:48)
[2020-05-23] MEDS: hydrOXYzine PAMOATE 25 MG CAPSULE (FP) PO PRN (09:48)
[2020-05-23] MEDS: NICOTINE 7 MG/24 HOURS TOPICAL PATCH TD SCH (10:17)
== END 2020-05-23 10:02 | disposition home or self-care (01) | DRG 772 ==
LOC: YASAS 14:58 → Y3W 15:01
PROVIDERS: ADMIT Allergy & Immunology; ATTEND Allergy & Immunology
PROC: HZ42ZZZ Group Counseling for Substance Abuse Treatment, Cognitive-Behavioral (ICD-10-PCS; principal; 2020-05-12)
DX: F10.20 Alcohol dependence, uncomplicated (principal); F14.20 Cocaine dependence, uncomplicated; F12.20 Cannabis dependence, uncomplicated; F17.210 Nicotine dependence, cigarettes, uncomplicated; F19.280 Other psychoactive substance dependence with psychoactive substance-induced anxiety disorder; F19.282 Other psychoactive substance dependence with psychoactive substance-induced sleep disorder; F32.0 Major depressive disorder, single episode, mild; E11.9 Type 2 diabetes mellitus without complications; Z79.4 Long term (current) use of insulin; Z56.0 Unemployment, unspecified; Z59.0 Homelessness; Z91.013 Allergy to seafood
CPT/HCPCS: 36415; 82962; 87389